=== PATIENT | female | born 1940 | race Caucasian/White ===

== ENCOUNTER 2022-03-23 12:57 | Outpatient (CLI) | payer MEDICARE, SELFPAY ==
[2022-03-23] MEDS: TETRACAINE 0.5% OPHTH 1 DROP EYE-LEFT ×3 (13:14→13:59)
[2022-03-23] MEDS: BRIMONIDINE TARTRATE 0.2% OPHTH 1 DROP EYE-LEFT ×2 (13:15→14:04)
[2022-03-23 13:22] VITALS: BP 163/85; PULSE 66; RESP 16; O2SAT 97
--- NOTE | 2022-03-23 15:10 | P.PCN_ITS ---
Procedure Note Date Seen: 03/23/22 Will [facility] bill your pro fee for this procedure?: Yes Procedure Description: SURGEON: Arti Horton MD PREOPERATIVE DIAGNOSIS: Posterior capsular opacity, left eye POSTOPERATIVE DIAGNOSIS: Posterior capsular opacity, left eye PROCEDURE: YAG laser capsulotomy, left eye ANESTHESIA: Topical. ESTIMATED BLOOD LOSS: None PATHOLOGY SPECIMEN: None COMPLICATIONS: None INDICATIONS: See consult note for details. The risks, benefits and alternatives of the procedure were explained to the patient, who elected to proceed and signed informed consent to do so. PROCEDURE: The patient was brought to the pre-holding area where the left eye was identified as the operative eye. I placed my initials above this eye. The patient received 2 sets of 1 drop of 0.5% tetracaine and 1 drop of 1% tropicamide. They also received 1 drop of 0.2% brimonidine. They received 1 drop of 0.5% tetracaine immediately prior to bringing them back for the procedure. The patient was then brought to the procedure room where the left eye was again identified as the operative eye. A YAG Rogelio capsulotomy lens was placed on the eye. The laser was administered using a total number of 11 shots with an energy of 2.4 mJ per shot for a total energy of 26 mJ. The patient tolerated the procedure well. DISPOSITION: The patient was taken back to the pre-holding area and given 1 drop of 0.2% brimonidine in the left eye. They were discharged to home in stable condition. The patient was instructed to call me or go to the emergency department with any sudden change, including dramatic loss of vision, severe pain in the eye or eyebrow region, nausea, or vomiting. The patient was instructed to use the 0.2% brimonidine 1 drop 2 times a day in the left eye for 1 week. The patient will follow up in the clinic in 1-2 weeks eleven Surgeon: Arti Horton MD
== END 2022-03-23 14:05 | disposition home or self-care (01) ==
LOC: EYE PRC 12:59
PROVIDERS: PCP Family Medicine; Visit Provider Ophthalmology
DX: H26.9 Unspecified cataract (principal)
CPT/HCPCS: 66821; A9270

== ENCOUNTER 2025-01-27 15:30 | Outpatient (RCR) | payer MEDICARE, SELFPAY | END 2025-05-01 11:03 | disposition home or self-care (01) | PROVIDERS: PCP Family Medicine; Visit Provider Family Medicine | DX: M25.512 Pain in left shoulder (principal); M25.561 Pain in right knee; Z51.89 Encounter for other specified aftercare | CPT/HCPCS: 97110; 97140; 97161; 97164 ==